=== PATIENT | male | born 1995 | race American Indian/Alaskan Native ===

== ENCOUNTER 2016-11-07 09:43 | Emergency (ER) | payer OTHER ==
--- NOTE | 2016-11-07 09:55 | Emergency Department Report ---
HPI - General Chief Complaint: Skin/Abscess/Foreign Body Time Seen by Provider: 11/07/16 09:54 - HPI HPI: Patient here reports right eye pain 2 days. He said he thinks something went in his right eye 2 days ago. Reports sensitivity to light. ED Past Medical Hx - Past Medical History Previous Medical History?: No - Surgical History Past Surgical History?: No - Family History Family history: no significant - Social History Smoking Status: Never Smoker Substance Use Type: None - Medications Home Medications: Home Medications Medication Instructions Recorded Confirmed Last Taken Type Ibuprofen [Motrin] 600 mg PO Q8H PRN #30 tablet 11/07/16 Unknown Rx Tobramycin 0.3% [Tobrex] 1 drop OU Q8HR #1 bottle 11/07/16 Unknown Rx ED Review of Systems ROS: Stated complaint: EYE PAIN Other details as noted in HPI Comment: All other systems reviewed and negative Constitutional: denies: chills, fever Eyes: eye pain. denies: vision change ENT: denies: ear pain, throat pain, congestion Respiratory: no symptoms reported Cardiovascular: denies: chest pain, palpitations, edema, syncope Gastrointestinal: denies: nausea, vomiting Musculoskeletal: denies: back pain, arthralgia Skin: denies: rash Neurological: denies: headache Psychiatric: denies: anxiety Physical Exam - Physical Exam Vital Signs: Vital Signs 11/07/16 11/07/16 10:00 13:34 Temperature 98.1 F Pulse Rate 60 Respiratory 16 18 Rate Blood Pressure 110/63 O2 Sat by Pulse 99 Oximetry Critical care attestation.: If time is entered above; I have spent that time in minutes in the direct care of this critically ill patient, excluding procedure time. ED Disposition Clinical Impression: Corneal abrasion, right Qualifiers: Encounter type: initial encounter Qualified Code(s): S05.01XA - Injury of conjunctiva and corneal abrasion without foreign body, right eye, initial encounter Disposition: DISCHARGED TO HOME OR SELFCARE Condition: Stable Instructions: Corneal Abrasion (ED) Additional Instructions: Patient advised to follow-up with case sealer Dr. Larson, I called his office and halfway house counselor stated that they can take them as a walk-in today. Prescriptions: Ibuprofen [Motrin] 600 mg PO Q8H PRN #30 tablet PRN Reason: Pain Tobramycin 0.3% [Tobrex] 1 drop OU Q8HR #1 bottle Referrals: PALOMA WAGGONER MD [Staff Physician] - 3-5 Days [facility], [Primary Care Provider] - 3-5 Days Forms: Accompanied Note, Work/School Release Form(ED)
[2016-11-07 10:10] VITALS: BP 110/63
[2016-11-07] MEDS: TETRACAINE 0.5% OU ONE (12:36)
[2016-11-07] MEDS: FUL-GLO OP ONE (12:36)
--- NOTE | 2016-11-07 13:20 | Emergency Department Report ---
ED Eye Problem HPI - General Chief complaint: Eye Problems Stated complaint: EYE PAIN Time Seen by Provider: 11/07/16 12:10 Source: patient Mode of arrival: Ambulatory Limitations: No Limitations - History of Present Illness Initial comments: 21-year-old male past medical history none presents with complaint of one day of right eye redness. Mild blurry vision, states that right eye feels very irritated. 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 Patient states he left work yesterday went home and began to feel irritating sensation in right eye. Mild pain, mild clear drainage from right eye tearing. Right eye sclera appears red on initial inspection. Vision is 20 out of 50 right eye 20 out of 20 overall 20 out of 25 left eye MD chief complaint: eye pain, eye redness Onset/Timin -: days(s) Onset Description: gradual Location: right eye Place: home, work If Injury: other (possible exposure to metal [place] at work) Eye Symptoms: burning, redness, pain, discharge - Related Data Previous Rx's Medication Instructions Recorded Last Taken Type Ibuprofen [Motrin] 600 mg PO Q8H PRN #30 tablet 11/07/16 Unknown Rx Tobramycin 0.3% [Tobrex] 1 drop OU Q8HR #1 bottle 11/07/16 Unknown Rx Allergies Allergy/AdvReac Type Severity Reaction Status Date / Time No Known Allergies Allergy Unverified 11/07/16 10:00 ED Review of Systems ROS: Stated complaint: EYE PAIN Other details as noted in HPI Constitutional: denies: chills, fever Eyes: eye pain. denies: eye discharge, vision change ENT: denies: ear pain, throat pain Respiratory: denies: cough, shortness of breath, wheezing Cardiovascular: denies: chest pain, palpitations Endocrine: no symptoms reported Gastrointestinal: denies: abdominal pain, nausea, diarrhea Genitourinary: denies: urgency, dysuria Musculoskeletal: denies: back pain, joint swelling, arthralgia Skin: denies: rash, lesions Neurological: denies: headache, weakness, paresthesias Psychiatric: denies: anxiety, depression Hematological/Lymphatic: denies: easy bleeding, easy bruising ED Past Medical Hx - Past Medical History Previous Medical History?: No - Surgical History Past Surgical History?: No - Social History Smoking Status: Current Every Day Smoker Substance Use Type: Alcohol - Medications Home Medications: Home Medications Medication Instructions Recorded Confirmed Last Taken Type Ibuprofen [Motrin] 600 mg PO Q8H PRN #30 tablet 11/07/16 Unknown Rx Tobramycin 0.3% [Tobrex] 1 drop OU Q8HR #1 bottle 11/07/16 Unknown Rx ED Physical Exam - General Limitations: No Limitations General appearance: alert, in no apparent distress - Head Head exam: Present: atraumatic, normocephalic - Eye Eye exam: Present: normal appearance, PERRL, EOMI - Expanded Eye Exam Expanded Eyelids: Normal Inspection: Left Pupils: Regular, Round: Bilateral, Reactive: Bilateral, Mydriasis: Bilateral, Miosissis: Bilateral Sclera/Conjunctival: Injection: Right Visual acuity (R) = 20/: 50 Visual acuity (L) = 20/: 25 With correction: No IOP (R) in mmH IOP measured with: Tonopen - ENT ENT exam: Present: mucous membranes moist - Neck Neck exam: Present: normal inspection - Respiratory Respiratory exam: Present: normal lung sounds bilaterally. Absent: respiratory distress - Cardiovascular Cardiovascular Exam: Present: regular rate, normal rhythm. Absent: systolic murmur, diastolic murmur, rubs, gallop - GI/Abdominal GI/Abdominal exam: Present: soft, normal bowel sounds - Rectal Rectal exam: Present: deferred - Extremities Exam Extremities exam: Present: normal inspection - Back Exam Back exam: Present: normal inspection - Neurological Exam Neurological exam: Present: alert, oriented X3 - Psychiatric Psychiatric exam: Present: normal affect, normal mood - Skin Skin exam: Present: warm, dry, intact, normal color. Absent: rash ED Course Vital Signs 11/07/16 10:00 Temperature 98.1 F Pulse Rate 60 Respiratory 16 Rate Blood Pressure 110/63 O2 Sat by Pulse 99 Oximetry ED Medical Decision Making - Medical Decision Making A/P: Corneal abrasion right eye 1-tobramycin eyedrops, artificial tears 2-Motrin when necessary 3-tetanus updated today 4-will give patient referral to ophthalmology. I advised patient to follow up if symptoms possible. Patient understood these instructions and stated he will call for follow-up appointment [facility] Critical care attestation.: If time is entered above; I have spent that time in minutes in the direct care of this critically ill patient, excluding procedure time. ED Disposition Clinical Impression: Corneal abrasion, right Qualifiers: Encounter type: initial encounter Qualified Code(s): S05.01XA - Injury of conjunctiva and corneal abrasion without foreign body, right eye, initial encounter Disposition: DISCHARGED TO HOME OR SELFCARE Is pt being admited?: No Does the pt Need Aspirin: No Condition: Stable Instructions: Corneal Abrasion (ED) Additional Instructions: Patient advised to follow-up with residential assistant Dr. Larson, I called his office and corporation secretary stated that they can take them as a walk-in today. Prescriptions: Ibuprofen [Motrin] 600 mg PO Q8H PRN #30 tablet PRN Reason: Pain Tobramycin 0.3% [Tobrex] 1 drop OU Q8HR #1 bottle Referrals: PRIMARY CAREMD [Primary Care Provider] - 3-5 Days PALOMA WAGGONER MD [Staff Physician] - 3-5 Days Forms: Accompanied Note, Work/School Release Form(ED)
[2016-11-07] MEDS: BOOSTRIX IM ONE (13:32)
[2016-11-07] MEDS: MOTRIN PO ONE (13:34)
== END 2016-11-07 13:38 | disposition home or self-care (01) ==
LOC: ED 09:43
DX: S05.01XA Injury of conjunctiva and corneal abrasion without foreign body, right eye, initial encounter (principal); X58.XXXA Exposure to other specified factors, initial encounter; Y93.9 Activity, unspecified; Y92.9 Unspecified place or not applicable; Y99.9 Unspecified external cause status
CPT/HCPCS: 90471; 90715; 99283